=== PATIENT | male | born 1965 | race Caucasian/White ===

== ENCOUNTER 2017-08-14 05:46 | Emergency (ER) | payer SELFPAY ==
[~2017-08-14] VITALS: Ht 185.4 cm; Wt 90.0 kg
[2017-08-14 05:47] VITALS: BP 150/90; PULSE 86; RESP 16; TEMP 97.7; O2SAT 99
[2017-08-14] MEDS ORDERED: CLON1 PO (06:17)
[2017-08-14] MEDS ORDERED: SERO300T PO (06:17)
--- NOTE | 2017-08-14 06:24 | PD ---
HPI Chief Complaint: Psychiatric Symptoms Time Seen by Provider: 06:09 Travel History International Travel<30 days: No Contact w/Intl Traveler<30days: No Traveled to known affect area: No History of Present Illness HPI 52-year-old white male presents emergency department requesting voluntary psychological evaluation. The patient states that he had just gotten off the [employer] earlier today from [place]. He states that he's been homeless now for the past few years. He had been living in [place] for 10 years when he decided to come back to the [facility]. He states that he was told that there was work in [place]. He states that he is been bouncing around the [facility] since then. Prior to coming to [facility] he was in [place] for a few weeks. When asked why he came to [facility] he stated that this was as far as his money could get him on the bus. He denies any toxic ingestions. No recent illness. He does admit to polysubstance abuse. He also drinks alcohol and smokes tobacco. He admits to being depressed and suicidal but has no current plan. He denies any homicidal ideation. Patient states that he was recently treated in [place] for the same. He is not taking any medications. PFSH Past Medical History Narrative Medical Depression, substance abuse Tetanus Vaccination: < 5 Years Past Surgical History Narrative Surgical Right knee arthroscopy Social History Alcohol Use: Yes Tobacco Use: Yes Substance Use: Yes Allergies-Medications (Allergen,Severity, Reaction): Coded Allergies: No Known Allergies (Unverified , 08/14/17) Reported Meds & Prescriptions Reported Meds & Active Scripts Active Reported Klonopin (Clonazepam) 1 Mg Tab 1 Mg PO BID Seroquel (Quetiapine Fumarate) 300 Mg Tab 300 Mg PO BID Review of Systems General / Constitutional: No: Fever Eyes: No: Visual changes HENT: No: Headaches Cardiovascular: No: Chest Pain or Discomfort Respiratory: No: Shortness of Breath Gastrointestinal: No: Abdominal Pain Genitourinary: No: Dysuria Musculoskeletal: No: Pain Skin: No Rash Neurologic: No: Weakness Psychiatric: Positive: Anxiety, Depression, Suicidal Ideations, Mood Disorder, Substance Abuse, No: Disorder of Thought, Homicidal Ideation Endocrine: No: Polydipsia Hematologic/Lymphatic: No: Easy Bruising Physical Exam Narrative GENERAL: Well-nourished, well-developed patient. SKIN: Warm and dry. HEAD: Normocephalic and atraumatic. EYES: No scleral icterus. No injection or drainage. ENT: No nasal drainage noted. Mucous membranes pink. Airway patent. NECK: Supple, trachea midline. Moves head freely without obvious discomfort. CARDIOVASCULAR: Regular rate and rhythm without murmurs, gallops, or rubs. RESPIRATORY: Breath sounds equal bilaterally. No accessory muscle use. GASTROINTESTINAL: Abdomen soft, non-tender, nondistended. EXTREMITIES: No cyanosis or edema. BACK: Nontender without obvious deformity. No CVA tenderness. NEURO: Patient is alert and oriented. no sensorimotor deficits. Nonfocal. Normal speech. PSYCH: No delusions. No auditory or visual hallucinations. Data Data Last Documented VS Vital Signs Date Time Temp Pulse Resp B/P (MAP) Pulse Ox O2 Delivery O2 Flow Rate FiO2 08/14/17 05:47 97.7 86 16 150/90 (110) 99 Room Air Orders Orders Complete Blood Count With Diff (08/14/17 06:20) Comprehensive Metabolic Panel (08/14/17 06:20) Thyroid Stimulating Hormone (08/14/17 06:20) Psych Screen (08/14/17 06:20) Drug Screen, Random Urine (08/14/17 06:20) Alcohol (Ethanol) (08/14/17 06:20) MDM Medical Decision Making Medical Screen Exam Complete: Yes Emergency Medical Condition: Yes Medical Record Reviewed: Yes Differential Diagnosis MDM: High Differential diagnoses: Schizophrenia, schizoaffective disorder, bipolar, anxiety, depression, adjustment reaction, mood disorder NOS, ODD, depressive disorder NOS, dementia, dementia with agitation, psychosis NOS, substance induced mood disorder, DMDD, Asperger syndrome, infection,electrolyte abnormality, malingering. Narrative Course Mental health screening discussed with the patient. Psychiatric screen ordered. The patient is been medically cleared. This is medical clearance for psychiatric admission Diagnosis Primary Impression: Medical clearance for psychiatric admission Condition: Kyle Hutchinson Aug 14, 2017 06:24
[2017-08-14 06:51] LABS: AUTOMATED NEUTROPHIL # 2.2 TH/MM3 (1.8-7.7); BASOPHIL % 0.9 % (0.0-2.0); EOSINOPHIL # 0.2 TH/MM3 (0-0.4); EOSINOPHIL % 3.5 % (0.0-4.0); HEMATOCRIT 37.1 % (39.0-51.0); HEMOGLOBIN 12.7 GM/DL (13.0-17.0); LYMPH % 41.6 % (9.0-44.0); LYMPHOCYTE # 2.1 TH/MM3 (1.0-4.8); MEAN CELL VOLUME 89.8 FL (80.0-100.0); MEAN CORPUSCULAR HEMOGLOBIN 30.8 PG (27.0-34.0); MEAN CORPUSCULAR HGB CONC 34.2 % (32.0-36.0); MEAN PLATELET VOLUME 6.8 FL (7.0-11.0); MONO % 11.5 % (0.0-8.0); MONOCYTE # 0.6 TH/MM3 (0-0.9); NEUT % 42.5 % (16.0-70.0); PLATELET COUNT 179 TH/MM3 (150-450); RED BLOOD COUNT 4.13 MIL/MM3 (4.50-5.90); WHITE BLOOD COUNT 5.2 TH/MM3 (4.0-11.0)
[2017-08-14 07:17] LABS: ALBUMIN 2.8 GM/DL (3.4-5.0); BICARBONATE 23.4 MEQ/L (21.0-32.0); CALCIUM 7.1 MG/DL (8.5-10.1); CREATININE 0.82 MG/DL (0.60-1.30)
[2017-08-14 07:21] LABS: TOTAL BILIRUBIN ADULT 0.6 MG/DL (0.2-1.0); TOTAL PROTEIN 7.7 GM/DL (6.4-8.2)
[2017-08-14 07:27] LABS: CALCIUM-PROTEIN CORRECTED 6.9 MG/DL (8.5-10.1)
--- NOTE | 2017-08-14 08:07 | PD ---
Physical Exam Time Seen by Provider: 08:05 Narrative Kyle Willson note for initial assessment and evaluation. Patient's hurting corrected calcium 6.9. I spoke with Dr. Mathew and she recommended EKG and if the WY interval was normal to administer 1000 mg oral calcium gluconate. Data Data Last Documented VS Vital Signs Date Time Temp Pulse Resp B/P (MAP) Pulse Ox O2 Delivery O2 Flow Rate FiO2 08/14/17 05:47 97.7 86 16 150/90 (110) 99 Room Air Orders Orders Complete Blood Count With Diff (08/14/17 06:20) Comprehensive Metabolic Panel (08/14/17 06:20) Thyroid Stimulating Hormone (08/14/17 06:20) Psych Screen (08/14/17 06:20) Drug Screen, Random Urine (08/14/17 06:20) Alcohol (Ethanol) (08/14/17 06:20) Diet Regular Basic (08/14/17 Breakfast) Electrocardiogram (08/14/17 08:02) Calcium Gluconate (Calcium Gluconate) (08/14/17 09:00) Calcium Carbonate (Oscal) (08/14/17 10:00) Labs Laboratory Tests Test 08/14/17 06:30 White Blood Count 5.2 TH/MM3 Red Blood Count 4.13 MIL/MM3 Hemoglobin 12.7 GM/DL Hematocrit 37.1 % Mean Corpuscular Volume 89.8 FL Mean Corpuscular Hemoglobin 30.8 PG Mean Corpuscular Hemoglobin Concent 34.2 % Red Cell Distribution Width 18.0 % Platelet Count 179 TH/MM3 Mean Platelet Volume 6.8 FL Neutrophils (%) (Auto) 42.5 % Lymphocytes (%) (Auto) 41.6 % Monocytes (%) (Auto) 11.5 % Eosinophils (%) (Auto) 3.5 % Basophils (%) (Auto) 0.9 % Neutrophils # (Auto) 2.2 TH/MM3 Lymphocytes # (Auto) 2.1 TH/MM3 Monocytes # (Auto) 0.6 TH/MM3 Eosinophils # (Auto) 0.2 TH/MM3 Basophils # (Auto) 0.0 TH/MM3 CBC Comment DIFF FINAL Differential Comment Blood Urea Nitrogen 8 MG/DL Creatinine 0.82 MG/DL Random Glucose 140 MG/DL Total Protein 7.7 GM/DL Albumin 2.8 GM/DL Calcium Level 7.1 MG/DL Alkaline Phosphatase 177 U/L Aspartate Amino Transf (AST/SGOT) 122 U/L Alanine Aminotransferase (ALT/SGPT) 70 U/L Total Bilirubin 0.6 MG/DL Sodium Level 142 MEQ/L Potassium Level 3.5 MEQ/L Chloride Level 109 MEQ/L Carbon Dioxide Level 23.4 MEQ/L Anion Gap 10 MEQ/L Estimat Glomerular Filtration Rate 98 ML/MIN Protein Corrected Calcium 6.9 MG/DL Thyroid Stimulating Hormone 3rd Gen 4.170 uIU/ML Urine Opiates Screen NEG Urine Barbiturates Screen NEG Urine Amphetamines Screen NEG Urine Benzodiazepines Screen NEG Urine Cocaine Screen POS Urine Cannabinoids Screen POS Ethyl Alcohol Level 200 MG/DL MDM Supervised Visit with IMAN: No Narrative Course Kyle Willson note for initial assessment and evaluation. Patient's hurting corrected calcium 6.9. I spoke with Dr. Mathew and she recommended EKG and if the WY interval was normal to administer 1000 mg oral calcium gluconate. I evaluated the patient and he has no current medical complaints. He reports doing cocaine, alcohol, etc. marijuana. He denies confusion, dislocation, change in mentation. Denies joint pain. His only complaint is 'back pain because of his spinal stenosis." 0903: EKG with normal sinus rhythm and WY interval 157ms. calcium gluconate 1000 mg oral ordered. 1000: Dr. Oesi has evaluated the patient and cleared the patient for discharge. Patient contracts safety. Denies suicidal or homicidal ideations. Patient will be provided community resource packet to [facility] for follow-up. Has friends and family for support. Patient was medically cleared by alternate provider prior to psych screening. Patient has been evaluated by psychiatry and and is now cleared for discharge. Diagnosis Primary Impression: Hypocalcemia Additional Impressions: Polysubstance abuse Substance induced mood disorder Referrals: [facility] (Out patient) [facility] Primary Care Physician Psychiatrist [facility] Patient Instructions: Depression (ED), General Instructions, Hypocalcemia (ED) , Polysubstance Abuse (ED) Additional Instruction: Contract safety to your self and others Stop using drugs Follow-up with psychiatry Follow-up with primary care provider Follow-up with primary care provider in regards to low calcium level; you were given calcium supplement in the ER Follow-up with Tex Rizvi Return to the emergency department immediately with worsening of symptoms Med/Other Pt SpecificInfo: No Change to Meds, No Meds Exist/No RX given Disposition: 01 DISCHARGE HOME Condition: Stable Le Hernandez Aug 14, 2017 08:07
[2017-08-14] MEDS ORDERED: CALCIUM GLUCONATE 500 MG TAB PO ONE (09:00)
[2017-08-14] MEDS ORDERED: CALCIUM CARBONATE 1.25 GM (CA 500 MG) TAB PO ONE (10:00)
--- NOTE | 2017-08-14 10:10 | HHI.PYPN ---
Subjective Chief Complaint: " i want to " Remarks Patient is a 52-year-old white male presents emergency department requesting voluntary psychological evaluation. Met with patient this morning. Patient was not very cooperative during his interview. He seemed very irritable. Patient was positive for cocaine, marijuana and alcohol. Blood alcohol levels were 200. Patient apparently got off the [employer] earlier from [place]. Patient reports he moved from [place] 3 years ago due to stresses that he did not want to disclose. Patient was and lived 10 years in [place] and states he had a good job however after moving here to be closer to his daughter who is 25 years of age patient has shown a decline in overall functioning. It appears he has started to abuse substances. Patient reports nobody wants to have a relationship with him. He cannot return home i.e. due to his ex and her and he would get into trouble?. When questioned further, patient refuses to elaborate. He has been homeless now for the past few years. He states that he is been bouncing around the [facility] since then he moved back from [place].. Prior to coming to [facility] he was in [place] for a few weeks. When asked why he came to [facility] he stated that this was as far as his money could get him on the bus. He does admit to polysubstance abuse. He also drinks alcohol and smokes tobacco. He admits to being depressed and suicidal as his life is not going the way he planned. Patient did not want to discuss his substance abuse. When referred to rehabilitation suggestion, patient was agreeable. He at this time denies any suicidal? Homicidal ideations. Patient states that he was recently treated in [place] for the same. He is not taking any medications at the current time. Social history: Homeless. No support systems. No work history over the last year at least. He reports he was working in [place] and was earning $41 an hour. But since has not been able to hold a job. Substance abuse history: Positive for cocaine, marijuana and alcohol. He also abuses cigarettes on a regular basis. Family history-unknown Mental status examination: Patient is awake, irritable, engages with the fha underwriter but minimally so. Appearance he is in hospital gowns. He keeps his eyes closed most of the time. Speech is regular rate and rhythm occasionally with increased volume. Thought process is linear. Thought content denies any auditory visual hallucinations. No obsessions or compulsions. Denies any homicidal ideations. Threatened suicidality in context of discharge, patient has no place to go and it appears this is what he did even in [place]. Mood is irritable(probably as he is coming off cocaine.), Affect is congruent. Insight judgment: impulsive and poor diagnosis; polysubstance abuse-cocaine abuse, THC abuse, alcohol and cigarettes abuse. C765- Malingering. "labs reviewed- shows an anemic picture(mixed) - f/up with OP clinic for anemic picture . recc VIT B and folic acid. pt did receive Ca+ tablets. prior to discharge due to low Calcium levels EKG ws done - wnl. Results Labs Test 08/14/17 06:30 White Blood Count 5.2 TH/MM3 Red Blood Count 4.13 MIL/MM3 Hemoglobin 12.7 GM/DL Hematocrit 37.1 % Mean Corpuscular Volume 89.8 FL Mean Corpuscular Hemoglobin 30.8 PG Mean Corpuscular Hemoglobin Concent 34.2 % Red Cell Distribution Width 18.0 % Platelet Count 179 TH/MM3 Mean Platelet Volume 6.8 FL Neutrophils (%) (Auto) 42.5 % Lymphocytes (%) (Auto) 41.6 % Monocytes (%) (Auto) 11.5 % Eosinophils (%) (Auto) 3.5 % Basophils (%) (Auto) 0.9 % Neutrophils # (Auto) 2.2 TH/MM3 Lymphocytes # (Auto) 2.1 TH/MM3 Monocytes # (Auto) 0.6 TH/MM3 Eosinophils # (Auto) 0.2 TH/MM3 Basophils # (Auto) 0.0 TH/MM3 CBC Comment DIFF FINAL Differential Comment Blood Urea Nitrogen 8 MG/DL Creatinine 0.82 MG/DL Random Glucose 140 MG/DL Total Protein 7.7 GM/DL Albumin 2.8 GM/DL Calcium Level 7.1 MG/DL Alkaline Phosphatase 177 U/L Aspartate Amino Transf (AST/SGOT) 122 U/L Alanine Aminotransferase (ALT/SGPT) 70 U/L Total Bilirubin 0.6 MG/DL Sodium Level 142 MEQ/L Potassium Level 3.5 MEQ/L Chloride Level 109 MEQ/L Carbon Dioxide Level 23.4 MEQ/L Anion Gap 10 MEQ/L Estimat Glomerular Filtration Rate 98 ML/MIN Protein Corrected Calcium 6.9 MG/DL Thyroid Stimulating Hormone 3rd Gen 4.170 uIU/ML Urine Opiates Screen NEG Urine Barbiturates Screen NEG Urine Amphetamines Screen NEG Urine Benzodiazepines Screen NEG Urine Cocaine Screen POS Urine Cannabinoids Screen POS Ethyl Alcohol Level 200 MG/DL Vitals/IOs Vital Signs Date Time Temp Pulse Resp B/P (MAP) Pulse Ox O2 Delivery O2 Flow Rate FiO2 08/14/17 05:47 97.7 86 16 150/90 (110) 99 Room Air Assessment & Plan Assessment & Plan Estimated LOS: days Kristi Osei MD Aug 14, 2017 10:10
--- NOTE | 2017-08-15 00:19 | EKG ---
Date Performed: 08/14/2017 Time Performed: 08:53:26 PTAGE: 52 years EKG: Sinus rhythm NORMAL ECG NO PREVIOUS TRACING DOCTOR: Dio Lyman Interpretating Date/Time 08/15/2017 00:18:52
== END 2017-08-14 12:00 | disposition home or self-care (01) ==
LOC: NEPD 05:46
DX: E83.51 Hypocalcemia (principal); F19.94 Other psychoactive substance use, unspecified with psychoactive substance-induced mood disorder; F32.9 Major depressive disorder, single episode, unspecified; F17.210 Nicotine dependence, cigarettes, uncomplicated; Z59.0 Homelessness; Z79.899 Other long term (current) drug therapy
CPT/HCPCS: 80053; 80307; 84443; 85025; 93005; 99284